=== PATIENT | male | born 1955 | race Caucasian/White ===

== ENCOUNTER → 2017-10-02 | Outpatient (CLI) | payer OTHER | END | disposition home or self-care (01) | LOC: CT 14:36 | DX: S16.1XXA Strain of muscle, fascia and tendon at neck level, initial encounter (principal); W00.0XXA Fall on same level due to ice and snow, initial encounter; Y92.89 Other specified places as the place of occurrence of the external cause; Y93.89 Activity, other specified; Y99.8 Other external cause status | CPT/HCPCS: 70450 ==

== ENCOUNTER → 2018-02-27 | Outpatient (CLI) | payer OTHER ==
[2018-02-28] MEDS: REGADENOSON 0.4 MG/5 ML DISP.SYRIN. IV (08:55)
== END | disposition home or self-care (01) ==
LOC: NM 09:22
DX: I21.29 ST elevation (STEMI) myocardial infarction involving other sites (principal); I51.7 Cardiomegaly
CPT/HCPCS: 78452; 93017; 93306; 96374; 96375; 96376; A9500; J2785